=== PATIENT | female | born 1935 | race Caucasian/White ===

== ENCOUNTER 2018-12-23 14:38 | Emergency (ER) | payer MEDICARE, OTHER ==
[2018-12-23] MEDS ORDERED: Acetaminophen 500 MG TAB ONE (15:29)
--- NOTE | 2018-12-23 15:40 | CT ---
Head CT without contrast 12/23/2018: HISTORY: Fall, trauma, pain TECHNIQUE: Axial CT imaging at 5 mm intervals from vertex through skull base without contrast FINDINGS: There is scalp swelling in the posterior left parietal region near the vertex consistent wi th recent head trauma. No associated intracranial hemorrhage or calvarial fracture. There is periventricular and deep white matter hypodensity bilaterally, evidence of small vessel disease. IMPRESSION: Prominent scalp swelling posteriorly in the left parietal region near the vertex. No asso ciated fracture or intracranial hemorrhage.
--- NOTE | 2018-12-23 15:56 | CT ---
Cervical spine CT without contrast: 12/23/2018 COMPARISON: None HISTORY: Fall, trauma, pain TECHNIQUE: Axial CT imaging at 2.5 mm intervals through the cervical spine with out contrast. Coronal and sagittal reformatted imaging obtained. FINDINGS: There is prominent degenerative change at the atlantoaxial interspace. The craniocervical j unction and the cervicothoracic junction appear intact. There is anterolisthesis at C3-4 measuring 2 mm and C4-5 measuring 3 mm. There is disc space narrowing with degenerative endplate change and ant erior osteophyte formation at C5-6 and C6-7. The C1 ring, the dens, and the occipital condyles demonstrate no acute findings. At C2-3, there is facet and uncovertebral osteophyte formation on the left with left neural foraminal stenosis. Bilateral facet and uncovertebral osteophyte formation noted at C3-4. At C4-5, there is prominent left-sided facet and uncovertebral osteophyte formation. At C5-6, there is prominent uncove rtebral osteophyte formation and anterior osteophyte formation on the right. Anterior and uncovertebral osteophyte formation noted on the right at C6-7. Imaged lung apices unremarkable. No di splaced fracture or dislocation. There is a hypodense nodule within the thyroid gland on the right measuring 1.5 cm. IMPRESSION: Prominent cervical spine degenerative change with no displaced fracture or dislocation. T hyroid nodule on the right for which nonemergent follow-up thyroid ultrasound is advised.
== END 2018-12-23 16:43 | disposition home or self-care (01) ==
LOC: ERS 14:38
DX: S51.011A Laceration without foreign body of right elbow, initial encounter (principal); S61.411A Laceration without foreign body of right hand, initial encounter; S00.03XA Contusion of scalp, initial encounter; I10 Essential (primary) hypertension; E03.9 Hypothyroidism, unspecified; E78.5 Hyperlipidemia, unspecified; F32.9 Major depressive disorder, single episode, unspecified; W01.0XXA Fall on same level from slipping, tripping and stumbling without subsequent striking against object, initial encounter
CPT/HCPCS: 70450; 72125